=== PATIENT | male | born 1980 | race Caucasian/White ===

== ENCOUNTER 2021-01-05 04:42 | Day surgery (SDC) | payer OTHER ==
[2021-01-05 08:52] VITALS: BMI 23.6
[2021-01-05 10:46] VITALS: BP 113/68; PULSE 76; TEMP 97.9
== END 2021-01-05 10:55 | disposition home or self-care (01) ==
LOC: JASU-ENDO 04:42
PROVIDERS: ATTEND Internal Medicine Gastroenterology
PROC: 0DBP8ZX Excision of Rectum, Via Natural or Artificial Opening Endoscopic, Diagnostic (ICD-10-PCS; principal; 2021-01-05 09:00)
DX: C18.0 Malignant neoplasm of cecum (principal); K62.4 Stenosis of anus and rectum; K91.858 Other complications of intestinal pouch; K50.018 Crohn's disease of small intestine with other complication; K64.8 Other hemorrhoids; Z98.0 Intestinal bypass and anastomosis status
CPT/HCPCS: 88305-TC; 88341-TC; 88342-TC